=== PATIENT | male | born 1960 | race African-American/Black ===

== ENCOUNTER 2018-10-20 08:49 | Emergency (ER) | payer MEDICAID ==
[~2018-10-20] VITALS: Ht 182.9 cm; Wt 84.1 kg
[2018-10-20] MEDS ORDERED: TETRACAINE HCL VISCOUS 0.5% 5 ML OPHTHALMIC SOLUTION OU ONE (09:15)
[2018-10-20] MEDS ORDERED: FLUORESCEIN SODIUM 1 MG STRIP ONE (10:09)
[2018-10-20 11:25] VITALS: BP 138/66
[2018-10-20] MEDS ORDERED: NEOMYCIN/BACITRACIN/POLYMYXIN B 3.5 GM OPHTHALMIC OINTMENT OU ONE (11:30)
== END 2018-10-20 12:11 | disposition home or self-care (01) ==
LOC: EMS 08:50
DX: T26.62XA Corrosion of cornea and conjunctival sac, left eye, initial encounter (principal); T26.61XA Corrosion of cornea and conjunctival sac, right eye, initial encounter; I10 Essential (primary) hypertension; Z76.0 Encounter for issue of repeat prescription; Y92.89 Other specified places as the place of occurrence of the external cause